=== PATIENT | female | born 2000 | race African-American/Black ===

== ENCOUNTER 2022-05-21 09:07 | Emergency (ER) | payer OTHER, MEDICAID ==
[~2022-05-21] VITALS: Ht 188 cm; Wt 102.3 kg
[2022-05-21 09:33] VITALS: BP 125/72
== END 2022-05-21 10:28 | disposition left against medical advice (07) ==
LOC: ER 09:07
DX: H92.01 Otalgia, right ear (principal); Z53.21 Procedure and treatment not carried out due to patient leaving prior to being seen by health care provider